=== PATIENT | male | born 1940 | race Hispanic/Latino ===

== ENCOUNTER 2016-12-29 20:39 | Emergency (ER) | payer BC, MEDICARE ==
[2016-12-29 20:56] VITALS: TEMP 98.5
--- NOTE | 2016-12-29 21:03 | RAD ---
EXAM DESCRIPTION: Wrist,Left 3 Views CLINICAL HISTORY: 76 years ,Male fall with pain, deformity COMPARISON: None. TECHNIQUE: LEFT wrist, Three view FINDINGS: There is a comminuted impacted intra-articular fracture of the distal radial metaphysis with dorsal displacement and angulation of the distal fracture fragment. Fracture of the ulnar styloid. Degenerative changes at the first CMC joint space with some chronic appearing fragmentation. IMPRESSION: Comminuted intra-articular fracture of the distal radius with dorsal regulation and displacement Ulnar styloid fracture Electronically signed by: Anny Moreira 12/29/2016 9:02 PM CDT
[2016-12-29] MEDS ORDERED: ONDANSETRON ODT 8 MG TAB SL ONE (21:14)
[2016-12-29] MEDS ORDERED: MORPHINE SULFATE INJ 10 MG/ML VIAL IV ONE ×2 (21:14→22:23)
--- NOTE | 2016-12-29 21:19 | RAD ---
EXAM DESCRIPTION: Ribs,Left 3 Views CLINICAL HISTORY: fall with pain, deformity COMPARISON: None. FINDINGS: Findings suggesting nondisplaced fractures of the lateral left fourth and fifth ribs. Minimal pleural thickening. No pneumothorax. No obvious pleural fluid. IMPRESSION: Findings suggesting nondisplaced fractures of the left fourth and fifth ribs Electronically signed by: Anny Moreira 12/29/2016 9:18 PM CDT
[2016-12-29] MEDS ORDERED: LIDOCAINE 2% 50 ML VIAL ONE (21:59)
--- NOTE | 2016-12-29 23:10 | ED.PDOC ---
History of Present Illness - General Chief Complaint: Upper Extremity Injury Stated Complaint: fall and injured left wrist Time Seen by Provider: 12/29/16 20:40 Source: patient Exam Limitations: no limitations - History of Present Illness Initial Comments: the patient is a 76-year-old male presenting to the emergency room secondary to a fall. The patient tried to catch himself with his left arm thatended up with severe wrist pain with deformity and rib painto the left lateral upper rib cage. No shortness of breath. He does have a mild abrasion to his left knee. Timing/Duration: momentarily Severity: severe Improving Factors: nothing Worsening Factors: movement Associated Symptoms: chest pain Allergies/Adverse Reactions: Allergies NO KNOWN ALLERGY Allergy (Verified 12/29/16 21:18) Home Medications: Ambulatory Orders Vcdcziafgevqt-Zndz-Itacdnaiyf [Fioricet] 1 ea PO Q4HR PRN #60 tab 12/29/16 Review of Systems - Review of Systems Constitutional: States: no symptoms reported EENTM: States: no symptoms reported Respiratory: States: no symptoms reported Cardiology: States: no symptoms reported Gastrointestinal/Abdominal: States: no symptoms reported Genitourinary: States: no symptoms reported Musculoskeletal: States: see HPI Skin: States: see HPI Neurological: States: no symptoms reported Endocrine: States: no symptoms reported All other Systems: No Change from Baseline Past Medical History (General) - Patient Medical History Hx Seizures: No Hx Stroke: No Hx Dementia: No Hx Asthma: No Hx of COPD: No Hx Cardiac Disorders: No Hx Congestive Heart Failure: No Hx Pacemaker: No Hx Hypertension: Yes Hx Thyroid Disease: No Hx Diabetes: Yes - NIDDM Hx Gastroesophageal Reflux: No Hx Renal Disease: No Hx Cancer: Yes - Hx prostate cancer Hx of HIV: No Hx Hepatitis C: No Hx MRSA: No - Vaccination History Hx Tetanus, Diphtheria Vaccination: Yes - within 5 yrs Hx Influenza Vaccination: Yes Hx Pneumococcal Vaccination: No - Social History Hx Tobacco Use: Yes Hx Alcohol Use: No - Triage Comment ED Triage Comment: Pt tripped over step and landed on left wrist, c/o pain to left wrist. and left ribs. Family Medical History - Family History Mother Family History: Unknown Living Status: Unknown Physical Exam - Physical Exam General Appearance: Alert, No apparent distress Eye Exam: bilateral normal Ears, Nose, Throat: hearing grossly normal, normal ENT inspection, normal pharynx Neck: full range of motion, supple Respiratory: no respiratory distress, no accessory muscle use, other - left lateral chest juan pablo uncomfortable to palpation. No definite bruising. No definite crepitus. No lacerations. Cardiovascular/Chest: normal peripheral pulses, no edema, other - regular rate Peripheral Pulses: radial,right: 2+, radial,left: 2+, dorsalis pedis,right: 2+, dorsalis pedis,left: 2+ Rectal Exam: deferred Extremity: no pedal edema, normal capillary refill, other - he patient has significant deformity of the left wrist. No pain in his elbow or shoulder. He is able to wiggle his fingers. Sensation is preserved. Radial pulses palpable. There are no lacerations. Neurologic: devil dog II-XII nml as tested, alert, normal mood/affect, oriented x 3 Skin Exam: normal color - abrasion to his left knee Comments: Vital Signs - 24 hr 12/29/16 12/29/16 12/29/16 20:48 21:48 22:38 Temperature 98.5 F Pulse Rate [ 75 85 76 monitor] Respiratory 16 20 20 Rate Blood Pressure 206/103 220/99 177/92 [Right Arm] O2 Sat by Pulse 96 96 94 L Oximetry Progress - Progress Progress: 12/29/16 23:13 the patient is a 76-year-old male presenting to the emergency room after a fall with a left wrist fracture and left nondisplaced fourth and fifth rib fractures. he patient will be written for Fioricet for pain control. He needs to use his splint and a sling for immobilization of the wristuntil he can be evaluated and treated by orthopedics. Given the significant displacement and multiple fragments of the distal radius, surgery will be required in order to achieve a functional joint. we did perform an external reduction, however as anticipated, external reduction is inadequate for functional healing. He is neurovascularly intact at this time. ER warnings were given for any acute worsening. he needs to follow up with orthopedics as soon as he gets back to [place] to set up a repair. He and his family do understand this. Risk and benefits of external reduction explained and patient agrees to proceed. The patient received a total of 8 mg of IV morphine for pain control. Additionally we did use 16 cc of 2% Xylocaine to perform a hematoma block for the distal radius fracture. External reduction did allow for some disimpaction of the distal radius. Multiple fragments were palpable when trying to reduce the distal radius. Alignment at least externally has improved with the reduction. Splint was placed. Capillary refill is good. He can wiggle his fingers without difficulty. - Results/Orders Results/Orders: x-ray of the wrist shows a comminuted distal radius fracture with extension into the joint space and significant displacement. There is also an ulnar styloid fracture. There is significant impaction of the distal radius as well. There is dorsal displacement of the distal fragments. Chest x-ray shows nondisplaced fourth and fifth lateral rib fractures. No pneumothorax. Departure - Departure Clinical Impression: Fracture of left wrist, Closed traumatic nondisplaced fracture of rib ICD-10 Supporting Text: initial evaluation. Closed comminuted fracture. Reduction performed. Disposition: Discharge to Home or Self Care Condition: Fair Departure Forms: ED Discharge - Pt. Copy, Patient Portal Self Enrollment Instructions: DI for Wrist Fracture, DI for Rib Fracture Diet: regular diet Activity: no pushing/pulling with affected limb Prescriptions: Bpudrmyispgve-Nglf-Mxbycrfjki [Fioricet] 1 ea PO Q4HR PRN #60 tab PRN Reason: Pain Home Medications: Ambulatory Orders Eilzkatrwgzrb-Lkwx-Itmtwvasli [Fioricet] 1 ea PO Q4HR PRN #60 tab 12/29/16 Additional Instructions: the patient is a 76-year-old male presenting to the emergency room after a fall with a left wrist fracture and left nondisplaced fourth and fifth rib fractures. he patient will be written for Fioricet for pain control. He needs to use his splint and a sling for immobilization of the wristuntil he can be evaluated and treated by orthopedics. Given the significant displacement and multiple fragments of the distal radius, surgery will be required in order to achieve a functional joint. we did perform an external reduction, however as anticipated, external reduction is inadequate for functional healing. He is neurovascularly intact at this time. ER warnings were given for any acute worsening. he needs to follow up with orthopedics as soon as he gets back to [place] to set up a repair. He and his family do understand this.
--- NOTE | 2016-12-29 23:21 | RAD ---
EXAM DESCRIPTION: Wrist,Left 2 Views CLINICAL HISTORY: 76 years ,Male post reduction COMPARISON: 12/29/2016 at 8:50 PM. TECHNIQUE: LEFT wrist, two view FINDINGS: Note is again made of the comminuted mildly impacted intra-articular fracture of the distal radius. There has been some interval improvement in alignment but there is still dorsal displacement of the distal fracture fragment. Ulnar styloid fracture again noted. IMPRESSION: Some interval improvement in alignment of the distal radial fracture with mild residual dorsal displacement Ulnar styloid fracture Electronically signed by: Anny Moreira 12/29/2016 11:20 PM CDT
[2016-12-29] MEDS ORDERED: NEOMYCIN-BACITRACIN-POLYMYXIN 0.9 GM UD TOP ONE (23:25)
[2016-12-29 23:52] VITALS: BP 177/69; O2SAT 97
== END 2016-12-29 23:51 | disposition home or self-care (01) ==
LOC: ER 20:39
DX: S52.502A Unspecified fracture of the lower end of left radius, initial encounter for closed fracture (principal); S22.42XA Multiple fractures of ribs, left side, initial encounter for closed fracture; S52.612A Displaced fracture of left ulna styloid process, initial encounter for closed fracture; I10 Essential (primary) hypertension; E11.9 Type 2 diabetes mellitus without complications; Z85.46 Personal history of malignant neoplasm of prostate; W18.09XA Striking against other object with subsequent fall, initial encounter; Y92.9 Unspecified place or not applicable
CPT/HCPCS: 71101; 73100; 73110; J2270